=== PATIENT | female | born 1970 | race Caucasian/White ===

== ENCOUNTER 2022-11-06 10:29 | Observation (INO) ==
[2022-11-06] MEDS ORDERED: NS 1,000 ML IV 1,000 ML IV ONE (11:13)
[2022-11-06] MEDS ORDERED: ZOFRAN INJ 4 MG VIAL IVP ONE (11:13)
[2022-11-06] MEDS ORDERED: ZOFRAN INJ 4 MG VIAL ONE (11:14)
[2022-11-06] MEDS ORDERED: NS 1,000 ML IV 1,000 ML ONE (11:14)
[2022-11-06] MEDS ORDERED: NORVASC TAB 5 MG PO ONE (11:40)
[2022-11-06] MEDS ORDERED: NORVASC TAB 5 MG ONE (11:44)
--- NOTE | 2022-11-06 11:46 | ED.ABDFE ---
HPI Time Seen Time Seen by Provider: 11/06/22 11:45 PCP Primary Care Physician: TIMOTHY JACOB HPI Comment HPI Comment: PATIENT IS 52YR OLD FEMALE IN ER WITH NAUSEA AND DIARRHEA TIMES ONE DAY. SHE IS WEAK AND FATIGUE. DIAGNOSED WITH COVID 19 VIRUS 10/29/22 AND RECEIVED MONOCLONAL ANTIBODY TREATMENT. DENIES CONTACT EXPOSURE. NO DYSURIA, COUGH, CONGE STION OR VOMITING. DECREASE APPETITE. HISTORY DM, HTN AND METASTATIC COLORECTAL CA. PATIENT CURRENTLY UNDERGOING CHEMO. LAST TREATMENT WAS 10/27/22. RUNNING LOW GRADE FEVER IN ER. Complaint Doctors Chief Complaint Comments: NAUAEA AND DIARRHEA TIMES ONE DAY. Chief Complaint:: LAST NIGHT PT HAD A SUDDEN ONSET OF DIARRHEA AND NAUSEA. DENIES VOMITING OR NEW PAIN. DENIES FEVER. 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 Past Surgical History: Yes Surgical History: Appendectomy, Cholecystectomy, Hysterectomy and Ortho Surgery Past Surgical History Comment: BACK SURGERY, EAR SURGERY, PAC PLACEMENT Family History History of Family Medical Conditions: Yes Family Medical History: Cancer and Hypertension Social History Does patient currently use any type of tobacco product: No Have you used tobacco products in the last 12 months: No Type of Tobacco Use: None Does any household member use tobacco: No Alcohol Use: None Do you use any recreational Drugs:: No Lives With: Family Lives Where: Home Travel Risk Coronavirus risk:travel/contact w/high risk person: No Has patient experienced Coronavirus symptoms: No Infectious screening In the last 2 months have you had wt loss of >10#?: NO Have you had fever, night sweats or hemotysis?: No Have you traveled outside the country in the last 6 months?: No Isolation: Standard ROS Review of Systems Constitutional: Fever, Weakness and Fatigue Eyes: No Symptoms Reported ENTM: No Symptoms Reported; negative Nose Discharge or Nose Congestion Respiratoy: No Symptoms Reported; negative Moist Cough or Short of Breath Cardiovascular: No Symptoms Reported; negative Chest Pain Gastrointestinal/Abdominal: Abdominal Pain, Diarrhea and Nausea Genitourinary: No Symptoms Reported; negative Dysuria Neurological: Weakness; negative Headache or Dizziness Musculoskeletal: No Symptoms Reported; negative Muscle Pain Integumentary: No Symptoms Reported; negative Rash or Juandice Hematologic/Lymphatic: No Symptoms Reported; negative Easy Bruising Endocrine: No Symptoms Reported; negative Increased Thirst or Increased Urine Psychiatric: No Symptoms Reported All Other Systems: Reviewed and Negative PE Vital Signs Vitals: Vital Signs Temperature 99.3 F Pulse Rate 112 Respiratory Rate 24 Blood Pressure 176/83 O2 Sat by Pulse Oximetry 97 General Limitations: No Limitations General Appearance: Alert and In No Apparent Distress Head Head Exam: Normal Inspection Eyes Eye exam: Normal Appearance; negative Scleral Icterus or Conjunctival Injection ENT ENT Exam: Normal Exam, Normal Oropharynx, Normal External Ear Exam and TM's Normal Bilaterally Neck Neck Exam: Normal Inspection and Trachea Midline; negative Tenderness Chest Chest Inspection: Normal Inspection and Symmetric Chest Wall Rise; negative Tenderness Respiratory Respiratory Exam: Normal Lung Sounds Bilat; negative Accessory Muscle Use, Chest Wall Tenderness or Respiratory Distress Respiratory Exam: Bilateral: Rhonchi (BASES.) Cardiovascular Cardiovascular Exam: Regular Rate, Normal Rhythm and Normal Heart Sounds; negative Systolic Murmur or Diastolic Murmur Abdominal Exam Abdominal Exam: Normal Inspection, Normal Bowel Sounds, Soft and Tenderness Abdominal Tenderness: Diffuse and Mild Rectal Rectal Exam: Deferred Back Back Exam: Normal Inspection; negative (R) CVA Tenderness or (L) CVA Tenderness Extremeties Extremities Exam: Normal Inspection and Normal Capillary Refill External Exam: Female: Deferred : Speculum Exam (Female): Deferred : Bimanual Exam (female): Deferred Neurologic Neurological Exam: Alert and Oriented X3; negative Motor Sensory Deficit Psychiatric Psychiatric Exam: Normal Affect Skin Skin Exam: Dry MDM Differential Diagnosis Differential Diagnosis- Considerations may include:: Bowel Obstruction, Constipation, Diverticular disease, Gastroenteritis, Inflammatory BD, P ancreatitis, Urinary tract infection and Urolithiasis COURSE Treatment Treatment: SEE ORDERS DONE WHILE PATIENT WAS IN ER. ZOFRAN 4MG IV, NS 1L IV BOLUS WHILE IN ER. LEVOQUIN 750MG IV IN ER. CT REPORT INDICATES PNEUMONIA. SHE WILL BE ADMITTED TO ER FOR FURTHER MANAGEMENT. Consultation Consultation Comments: DISCUSSED PATIENT WITH DR. IRIZARRY. HE WILL ADMIT PATIENT. Education/Counseling Education/Counseling: Patient Educated On: Diagnosis ROR Labs Reviewed Laboratory Results Reviewed?: Yes Result Diagrams: 11/07/22 05:30 11/07/22 05:30 Laboratory: 11/06/22 12:22 Stool Stool Culture - Final 11/06/22 12:22 Stool - Final WBC 4.5 X10^3/uL (3.6-10.0) 11/06/22 11:24 RBC 4.30 X10^6/uL (3.5-5.4) 11/06/22 11:24 Hgb 12.1 g/dL (12.0-16.0) 11/06/22 11:24 Hct 36.6 % (36.0-47.0) 11/06/22 11:24 MCV 85.2 fL (80.0-100.0) 11/06/22 11:24 MCH 28.2 pg (27.0-34.0) 11/06/22 11:24 MCHC 33.1 g/dL (33.0-35.0) 11/06/22 11:24 RDW 18.8 % (11.6-16.5) H 11/06/22 11:24 Plt Count 64 X10^3/uL (150.0-450.0) L 11/06/22 11:24 MPV 10.2 fL (7.4-11.0) 11/06/22 11:24 Neut % (Auto) 75.4 % (42.0-75.0) H 11/06/22 11:24 Lymph % (Auto) 12.3 % (21.0-51.0) L 11/06/22 11:24 [place] % (Auto) 8.0 % (0.0-13.0) 11/06/22 11:24 Eos % (Auto) 4.0 % (0.9-2.9) H 11/06/22 11:24 Baso % (Auto) 0.3 % (0.2-1.0) 11/06/22 11:24 Neut # (Auto) 3.4 x10^3/uL (2.2-4.8) 11/06/22 11:24 Lymph # (Auto) 0.6 X10^3/uL (1.3-2.9) L 11/06/22 11:24 [place] # (Auto) 0.4 x10^3/uL (0.3-0.8) 11/06/22 11:24 Eos # (Auto) 0.2 x10^3/uL (0.0-0.2) 11/06/22 11:24 Baso # (Auto) 0.0 X10^3/uL (0.0-0.1) 11/06/22 11:24 Absolute Nucleated RBC 0.1 /100WBC 11/06/22 11:24 Sodium 140 mmol/L (136-145) 11/06/22 11:24 Corrected Sodium 141 mmol/L (136-145) 11/06/22 11:24 Potassium 4.1 mmol/L (3.5-5.1) 11/06/22 11:24 Chloride 105 mmol/L (98-107) 11/06/22 11:24 Carbon Dioxide 26.4 mmol/L (21-32) 11/06/22 11:24 BUN 12 mg/dL (7-18) 11/06/22 11:24 Creatinine 0.72 mg/dL (0.55-1.02) 11/06/22 11:24 Est GFR (MDRD) Af Amer > 60 (>60) 11/06/22 11:24 Est GFR (MDRD) Non-Af > 60 (>60) 11/06/22 11:24 Glucose 143 mg/dL (65-99) H 11/06/22 11:24 Calcium 7.8 mg/dL (8.5-10.1) L 11/06/22 11:24 Corrected Calcium 8.4 mg/dL (8.5-10.1) L 11/06/22 11:24 Total Bilirubin 0.20 mg/dL (0.2-1.0) 11/06/22 11:24 AST 38 Units/L (15-37) H 11/06/22 11:24 ALT 44 Units/L (12-78) 11/06/22 11:24 Alkaline Phosphatase 73 Units/L (46-116) 11/06/22 11:24 Total Protein 6.4 g/dL (6.4-8.2) 11/06/22 11:24 Albumin 3.2 g/dL (3.4-5.0) L 11/06/22 11:24 Globulin 3.2 g/dL (2.5-4.5) 11/06/22 11:24 Albumin/Globulin Ratio 1.0 Ratio (1.1-2.1) L 11/06/22 11:24 Amylase 27 Units/L (25-115) 11/06/22 11:24 Lipase 90 Units/L (73-393) 11/06/22 11:24 Specimen Type Clean catch urine 11/06/22 13:35 Urine Color Yellow (YELLOW) 11/06/22 13:35 Urine Appearance Clear (CLEAR) 11/06/22 13:35 Urine pH 5.0 (5.0 - 8.0) 11/06/22 13:35 Ur Specific [place] 1.005 (1.000-1.030) 11/06/22 13:35 Urine Protein 3+ (NEGATIVE) 11/06/22 13:35 Urine Glucose (UA) Negative (NEGATIVE) 11/06/22 13:35 Urine Ketones Negative (NEGATIVE) 11/06/22 13:35 Urine Blood Negative (NEGATIVE) 11/06/22 13:35 Urine Nitrite Negative (NEGATIVE) 11/06/22 13:35 Urine Bilirubin Negative (NEGATIVE) 11/06/22 13:35 Urine Urobilinogen Normal (NORMAL) 11/06/22 13:35 Ur Leukocyte Esterase Negative (NEGATIVE) 11/06/22 13:35 Urine RBC 0-2 /HPF (0-3) 11/06/22 13:35 Urine WBC 0-2 /HPF (0-5) 11/06/22 13:35 Ur Squamous Epith Cells Rare /HPF (NEGATIVE) 11/06/22 13:35 Urine Bacteria Negative /HPF (NEGATIVE) 11/06/22 13:35 Ur Culture Indicated? No/not indicated 11/06/22 13:35 Stl Occult Blood (IFOB) Negative (NEGATIVE) 11/06/22 12:22 Stool for White Cells Positive (NEGATIVE) A 11/06/22 12:22 Stl C. diff Tox B Gene Negative (NEGATIVE) 11/06/22 12:22 Stl C. diff [id number] Presumptive negative (NEGATIVE) 11/06/22 12:22 Stool H. pylori Ag Negative (NEGATIVE) 11/06/22 12:22 Cryptosporid parvum Ag Negative (NEGATIVE) 11/06/22 12:22 Giardia lamblia Ag Negative (NEGATIVE) 11/06/22 12:22 XRAY XRAY Interpreted by: Radiologist (REPORT NOTED.) Opioid Opioid Risk Tool Age (Ajit box if 16-45): No History of Preadolescent Sexual Abuse: No Total: 0 Total Score Risk Category: Low Risk Copyright: Luis Armando ROSALES predicting aberrant behaviors Discharge Plan Diagnosis Discharge Problem: Gastroenteritis, Metastatic colon cancer to liver Pneumonia Qualifiers: Pneumonia type: due to unspecified organism Laterality: bilateral Lung location: lower lobe of lung Qualified Code(s): J18.9 - Pneumonia, unspecified organism Discharge Plan Patient Disposition: 09 ADMITTED INPATIENT Condition: Stable Orders to Discharge Patient Discharge Orders: Discharge (Routine); Ordered 11/07/22 Ordered By: SERA IRIZARRY
[2022-11-06 12:00] LABS: BASOPHILS % (AUTO) 0.3 % (0.2-1.0); EOSINOPHILS # (AUTO) 0.2 x10^3/uL (0.0-0.2); HEMATOCRIT 36.6 % (36.0-47.0); HEMOGLOBIN 12.1 g/dL (12.0-16.0); LYMPHOCYTES # (AUTO) 0.6 X10^3/uL (1.3-2.9); LYMPHOCYTES % (AUTO) 12.3 % (21.0-51.0); MEAN CORPUSCULAR HEMOGLOBIN 28.2 pg (27.0-34.0); MEAN CORPUSCULAR HGB CONC 33.1 g/dL (33.0-35.0); MEAN CORPUSCULAR VOLUME 85.2 fL (80.0-100.0); MEAN PLATELET VOLUME 10.2 fL (7.4-11.0); MONOCYTES # (AUTO) 0.4 x10^3/uL (0.3-0.8); NEUTROPHILS # (AUTO) 3.4 x10^3/uL (2.2-4.8); NEUTROPHILS % (AUTO) 75.4 % (42.0-75.0); PLATELET COUNT 64 X10^3/uL (150.0-450.0); RED CELL DISTRIBUTION WIDTH 18.8 % (11.6-16.5); WHITE BLOOD COUNT 4.5 X10^3/uL (3.6-10.0)
[2022-11-06 12:07] LABS: ALANINE AMINOTRANSFERASE 44 Units/L (12-78); ALBUMIN 3.2 g/dL (3.4-5.0); ALKALINE PHOSPHATASE 73 Units/L (46-116); AMYLASE 27 Units/L (25-115); ASPARTATE AMINO TRANSFERASE 38 Units/L (15-37); BLOOD UREA NITROGEN 12 mg/dL (7-18); CALCIUM 7.8 mg/dL (8.5-10.1); CARBON DIOXIDE 26.4 mmol/L (21-32); CHLORIDE 105 mmol/L (98-107); COR CA(FOR HYPOALB) 8.4 mg/dL (8.5-10.1); COR NA(FOR HYPERGLY) 141 mmol/L (136-145); CREATININE 0.72 mg/dL (0.55-1.02); GLUCOSE 143 mg/dL (65-99); LIPASE 90 Units/L (73-393); POTASSIUM 4.1 mmol/L (3.5-5.1); SODIUM 140 mmol/L (136-145); TOTAL PROTEIN 6.4 g/dL (6.4-8.2); eGFR NON BLACK RACES > 60 (>60)
[2022-11-06 13:43] LABS: BILIRUBIN,URINE NEGATIVE (NEGATIVE); BLOOD/HEMOGLOBIN,URINE NEGATIVE (NEGATIVE); GLUCOSE, URINE NEGATIVE (NEGATIVE); KETONES,URINE NEGATIVE (NEGATIVE); LEUKOCYTE ESTERASE ,URINE NEGATIVE (NEGATIVE); NITRITES,URINE NEGATIVE (NEGATIVE); PROTEIN,URINE 3+ (NEGATIVE); UROBILINOGEN,URINE NORMAL (NORMAL)
[2022-11-06 13:51] LABS: APPEARANCE,URINE CLEAR (CLEAR); COLOR,URINE YELLOW (YELLOW)
[2022-11-06 13:52] LABS: BACTERIA,URINE NEGATIVE /HPF (NEGATIVE); RBC,URINE 0-2 /HPF (0-3); SQUAMOUS EPITHELIAL CELL,UR RARE /HPF (NEGATIVE)
[2022-11-06 13:54] LABS: CRYPTOSPORIDIUM PARVUM ANTIGEN NEGATIVE (NEGATIVE); GIARDIA LAMBLIA ANTIGEN NEGATIVE (NEGATIVE)
--- NOTE | 2022-11-06 14:43 | CT ---
HISTORYAbdominal painSTUDYCT abdomen pelvis with contrastTechnique: Axial post-contrast images with coronal and sagittal reformats. Dose reduction procedures were used with mA/kv adjusted for body size.[id number] tion of the lung bases demonstrated bilateral patchy ground-glass infiltrates suggestive of developing multifocal pneumonia. This could be bacterial, viral, or atypical viral in origin. This represents a significant change from the prior examination. The liver, spleen, adrenal glands, and pancreas are within normal limits. Patient is status post cholecystectomy. Kidneys are unobstructed and without stones or masses. No ureteral calculi are identified. Abdominal aorta is normal. No intraperitoneal or retroperitoneal lymphadenopathy of significance is identified. The patient appears to have either a short normal appearance or a noninflamed appendiceal stump. There are no findings suggestive of enteritis, colitis, or diverticulitis. No pelvic masses, pelvic fluid, or pelvic lymphadenopathy is identified. No bladder abnormality is identified. Uterus is absent. No lytic or blastic skeletal lesions of significance are identified.IMPRESSIONNo acute intra-abdominal or intrapelvic abnormality identifiedMultiple bilateral bibasilar patchy ground-glass infiltrate suggestive of multifocal pneumonia which could be bacterial, viral, or atypical viral in origin.Electronically signed by: VERO BAUMAN (Nov 06, 2022 14:34:20)
[2022-11-06] MEDS ORDERED: LOMOTIL PO ONE (14:48)
[2022-11-06] MEDS ORDERED: LOMOTIL ONE (15:02)
[2022-11-06] MEDS ORDERED: LEVAQUIN TAB 750 MG PO ONE (15:33)
[2022-11-06] MEDS: LEVAQUIN TAB 250 MG ONE ×2 (15:55→15:57)
[2022-11-06] MEDS ORDERED: PHARMACY CONSULT - VANCOMYCIN XX SCH (16:00)
[2022-11-06] MEDS ORDERED: LR 1,000 ML IV 1,000 ML IV ONE (17:06)
[2022-11-06] MEDS ORDERED: ATIVAN TAB 0.5 MG ONE (17:06)
[2022-11-06] MEDS ORDERED: PAXIL ONE (17:06)
[2022-11-06] MEDS: PAXIL PO SCH (17:20)
[2022-11-06] MEDS: VANCOMYCIN IV *PREMIX 1.25 G/250 ML BAG 1.25 G/250 ML PIGGYBACK IV SCH ×2 (17:20→22:00)
[2022-11-06] MEDS: LR 1,000 ML IV 1,000 ML IV SCH (17:20)
[2022-11-06] MEDS: ATIVAN TAB 0.5 MG PO PRN (17:21)
[2022-11-06 17:39] VITALS: BMI 32.6
[2022-11-06] MEDS: MAGNESIUM SULFATE 1 GRAM/100 mL PREMIX 1 G/100 ML BAG IV SCH ×2 (20:20→22:50)
[2022-11-06] MEDS: PULMICORT NEB TX 0.5 MG NEB SCH (21:00)
[2022-11-06] MEDS: XOPENEX 1.25 MG/3 ML NEBULE NEB SCH (21:00)
[2022-11-07] MEDS: MAGNESIUM SULFATE 1 GRAM/100 mL PREMIX 1 G/100 ML BAG IV SCH ×2 (00:55→01:57)
[2022-11-07] MEDS: LR 1,000 ML IV 1,000 ML IV SCH ×3 (00:59→12:22)
[2022-11-07] MEDS: XOPENEX 1.25 MG/3 ML NEBULE NEB SCH ×2 (05:35→13:34)
[2022-11-07 06:26] LABS: BASOPHILS % (AUTO) 0.3 % (0.2-1.0); EOSINOPHILS # (AUTO) 0.1 x10^3/uL (0.0-0.2); EOSINOPHILS % (AUTO) 3.5 % (0.9-2.9); HEMATOCRIT 34.1 % (36.0-47.0); HEMOGLOBIN 11.4 g/dL (12.0-16.0); LYMPHOCYTES # (AUTO) 0.7 X10^3/uL (1.3-2.9); LYMPHOCYTES % (AUTO) 24.1 % (21.0-51.0); MEAN CORPUSCULAR HEMOGLOBIN 28.3 pg (27.0-34.0); MEAN CORPUSCULAR HGB CONC 33.5 g/dL (33.0-35.0); MEAN CORPUSCULAR VOLUME 84.4 fL (80.0-100.0); MEAN PLATELET VOLUME 9.9 fL (7.4-11.0); MONOCYTES # (AUTO) 0.4 x10^3/uL (0.3-0.8); MONOCYTES % (AUTO) 13.5 % (0.0-13.0); NEUTROPHILS # (AUTO) 1.8 x10^3/uL (2.2-4.8); NEUTROPHILS % (AUTO) 58.6 % (42.0-75.0); PLATELET COUNT 52 X10^3/uL (150.0-450.0); RED BLOOD COUNT 4.04 X10^6/uL (3.5-5.4); RED CELL DISTRIBUTION WIDTH 18.9 % (11.6-16.5)
[2022-11-07 06:51] LABS: ALANINE AMINOTRANSFERASE 34 Units/L (12-78); ALBUMIN 2.7 g/dL (3.4-5.0); ALKALINE PHOSPHATASE 49 Units/L (46-116); ASPARTATE AMINO TRANSFERASE 30 Units/L (15-37); BLOOD UREA NITROGEN 7 mg/dL (7-18); CALCIUM 7.6 mg/dL (8.5-10.1); CARBON DIOXIDE 26.5 mmol/L (21-32); CHLORIDE 107 mmol/L (98-107); COR CA(FOR HYPOALB) 8.6 mg/dL (8.5-10.1); COR NA(FOR HYPERGLY) 142 mmol/L (136-145); CREATININE 0.73 mg/dL (0.55-1.02); GLUCOSE 152 mg/dL (65-99); MAGNESIUM 2.5 mg/dL (2.0-2.9); SODIUM 141 mmol/L (136-145); TOTAL PROTEIN 5.7 g/dL (6.4-8.2); eGFR NON BLACK RACES > 60 (>60)
[2022-11-07] MEDS: PAXIL PO SCH (08:35)
[2022-11-07] MEDS: ATIVAN TAB 0.5 MG PO PRN (08:35)
[2022-11-07] MEDS: VANCOMYCIN IV *PREMIX 1.25 G/250 ML BAG 1.25 G/250 ML PIGGYBACK IV SCH (08:35)
[2022-11-07] MEDS: PULMICORT NEB TX 0.5 MG NEB SCH (09:01)
[2022-11-07] MEDS ORDERED: PAXIL PO SCH (10:25)
[2022-11-07] MEDS ORDERED: VSL#3 PO SCH (10:30)
--- NOTE | 2022-11-07 14:12 | CT ---
HISTORYFEVER, HEADACHE, NOSE BLEEDSSTUDYSINUS W/O CONCOMPARISONNoneTECHNIQUEMultiple axial images of the paranasal sinuses were obtained without the administration of IV contrast. Coronal and sagittal reformats were performed and reviewed. Dose reduction techniques including Automated Exposure Control (AEC) and adjustment of mA and kV were utilized.FINDINGSMinimal chronic mucosal thickening of the anterior ethmoid air cells are observed. Otherwise, paranasal sinuses demonstrate normal aeration without significant mucosal disease or air-fluid level. The nasal septum is deviated to the right. The ostiomeatal unit on the right and left are widely patent without inflammatory change. The left and right frontal recesses are unremarkable in their appearance. Visualized portions of the posterior fossa and intracranial structures are unremarkable as well.IMPRESSIONChronic appearing mucosal thickening of the anterior ethmoid air cells.Nasal septal deviation to the right with rightward projecting nasal spur.Electronically signed by: JELANI MILLER (Nov 07, 2022 14:11:17)
[2022-11-07] MEDS ORDERED: LEVAQUIN PREMIX IV 750 MG 750 MG/150 ML BAG IV SCH (15:00)
[2022-11-07 16:20] VITALS: BP 139/79; PULSE 74; TEMP 97.4; O2SAT 95
[2022-11-07] MEDS ORDERED: PHARMACY COMMENT IV NR (20:30)
== END 2022-11-07 18:06 | disposition home or self-care (01) ==
LOC: ER 10:29 → MED/SURG 10:29
PROVIDERS: ADMIT Obstetrics & Gynecology Obstetrics; ATTEND Obstetrics & Gynecology Obstetrics
DX: C18.9 Malignant neoplasm of colon, unspecified; J01.80 Other acute sinusitis; R51.9 Headache, unspecified; E03.8 Other specified hypothyroidism; Z92.21 Personal history of antineoplastic chemotherapy; E11.65 Type 2 diabetes mellitus with hyperglycemia; I10 Essential (primary) hypertension; R04.0 Epistaxis; J12.82 Pneumonia due to coronavirus disease 2019; C78.7 Secondary malignant neoplasm of liver and intrahepatic bile duct; K52.89 Other specified noninfective gastroenteritis and colitis; R10.84 Generalized abdominal pain; U07.1 COVID-19; B95.3 Streptococcus pneumoniae as the cause of diseases classified elsewhere